=== PATIENT | female | born 1935 | race Caucasian/White ===

== ENCOUNTER → 2016-11-09 | Outpatient (CLI) | payer MEDICARE, BC, MEDICAID ==
[~2016-11-09] MED LIST: ACET-2890 PO; ALBU8.5H INH; AMLO2.5T30 PO; ASPI-557 PO; ATOR10TA64 PO; CALC-191 PO; CEPH500C2 PO; CHOL100018 PO; CYCL-208 PO; FLUO40CA40 PO; GADOBUTROL 10mMol/10ml INJECTION IV ONE; HYDR-4246 PO; INSU100V8 SQ; INSU200I SQ; LETR2.5T4 PO; LEVO150T11 PO; LORA-358 PO; LOSA100T2 PO; MELO-273 PO; METF-206 PO; MULT-806 PO; ONDA-56 PO; POTA20TA68 PO; SALINE FLUSH 10ml SYRINGE ONE; TORS20TA PO
--- NOTE | 2016-11-10 08:30 | DI ---
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 Contrast: 10 mL of Gadavist FINDINGS: Mostly empty sella. The ventricles are of normal size, shape, and contour for the patient's age. There are small nonspecific punctate areas of T2-weighted and T2 FLAIR weighted signal abnormality in the deep frontoparietal white matter that most likely represent small vessel ischemic disease. This is of a degree that is considered to be normal for the patient's age. The brain stem, cerebellum, and cerebral hemispheres otherwise have a normal morphologic appearance as well as MR signal intensity on all pulse sequences. Following intravenous administration of contrast, no areas of abnormal enhancement are evident. There are no areas of restricted diffusion to suggest an acute infarct. There is no evidence of an intracranial mass lesion, intracranial hemorrhage, or hydrocephalus. The visualized portions of the calvarium, paranasal sinuses, and skull base demonstrate no significant abnormality. Irregular contour of the right globe. IMPRESSION: Unremarkable MRI of the head for the patient's age with and without contrast. .
== END ==
LOC: IMA 16:23
PROVIDERS: ATTEND Internal Medicine Hematology & Oncology
DX: C18.2 Malignant neoplasm of ascending colon (principal); R51 Headache; C50.912 Malignant neoplasm of unspecified site of left female breast
CPT/HCPCS: 70553; A9585

== ENCOUNTER → 2016-11-10 | Outpatient (CLI) | payer MEDICARE, BC ==
[~2016-11-10] MED LIST changes: -GADOBUTROL 10mMol/10ml INJECTION IV ONE; -SALINE FLUSH 10ml SYRINGE ONE
--- NOTE | 2016-11-10 13:06 | DI ---
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 Anterior and posterior planar whole-body and spot images were obtained. FINDINGS: The scan demonstrates the expected normal biodistribution for the radiotracer. There is probable degenerative uptake seen in the feet. 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 There is no abnormal radiotracer uptake to suggest bony metastasis. IMPRESSION: Stable exam without evidence of metastatic disease to the skeleton. .
== END ==
LOC: IMA 09:19
PROVIDERS: ATTEND Internal Medicine Hematology & Oncology
DX: C18.2 Malignant neoplasm of ascending colon (principal); C50.912 Malignant neoplasm of unspecified site of left female breast; R51 Headache
CPT/HCPCS: 78306; A9503

== ENCOUNTER → 2016-11-17 | Outpatient (CLI) | payer MEDICARE, BC, MEDICAID ==
[2016-11-18 00:35] LABS: LDL CHOLESTEROL,CALCULATED 68.2 (66-159); RISK FACTOR 3.5 RATIO (0-4.0); VLDL CHOLESTEROL 25.8 MG/DL (0-28)
== END ==
LOC: LABNH.A212 01:30
DX: E78.2 Mixed hyperlipidemia (principal)
CPT/HCPCS: 36415; 80061; P9604